=== PATIENT | male | born 1955 | race Caucasian/White ===

== ENCOUNTER → 2018-11-19 06:32 | Day surgery (SDC) | payer BC, OTHER ==
[~2018-11-19 06:32] MED LIST: Acetaminophen TAB* 325 MG ONE; Acetaminophen TAB* 325 MG PO ONE; Buffered Lidocaine 1% SYRIN* 1 ML/SYRINGE INTRADERM ONE; Bupivacaine 0.25% SDV PF* 10 ML VIAL INJ ONE; Dexamethasone IV* 4 MG/ML 1 ML (4 MG) ONE; DiMENhydriNATE IV* 50 MG/ML VIAL IV PUSH PRN; DiMENhydriNATE IV* 50 MG/ML VIAL ONE; Famotidine IV* 10 MG/ML 2 ML (20 mg) ONE; Gabapentin CAP(*) 300 MG ONE; Gabapentin CAP(*) 300 MG PO ONE; HYDROcodone/ACETAMIN 5-325 MG* 1 TAB ONE; HYDROcodone/ACETAMIN 5-325 MG* 1 TAB PO PRN; Ketorolac INJ* 30 MG/ML 1 ML VIAL ONE; Labetalol IV* 5 MG/ML 20 ML VIAL ONE; Lactated Ringers 1000 ML Bag* 1,000 ML IV SCH; Lidocaine 2% PF * 5 ML VIAL ONE; Midazolam* 1 MG/ML 2 ML VIAL (2 MG) ONE; Naloxone* 0.4 MG/ML 1 ML VIAL IV PRN; Ondansetron INJ* 2 MG/ML VIAL IV PRN; Ondansetron INJ* 2 MG/ML VIAL ONE; PROCHLORPERAZINE INJ 5 MG/ML 2 ML VIAL IV PRN; Propofol* 10 MG/ML 20 ML BTL ONE; ceFAZolin 2 GM in NS PREMIX(*) 2 GM/100 ML BAG IVPB ONE; diPHENhydraMINE IV* 50 MG/ML 1 ml VIAL (BENADRYL) IV PRN; fentaNYL* 50 MCG/ML 2 ML VIAL (100 MCG VIAL) ONE
[2018-11-19] MEDS: fentaNYL* 50 MCG/ML 2 ML VIAL (100 MCG VIAL) IV PRN ×4 (11:50→12:35)
[2018-11-19 13:55] VITALS: BP 153/106
--- NOTE | 2018-11-19 14:46 | OP ---
OPERATIVE REPORT: DATE OF OPERATION: 11/19/18 DATE OF : 55 SURGEON: Piter Mccain MD CLIENT DEVELOPMENT MANAGER: GLENDA Fatima An ex assistant/program director was needed for the entirety of the procedure to aid in positioning of the arm and retraction. ANESTHESIOLOGIST: Dr. Short. ANESTHESIA: General. PRE-OP DIAGNOSIS: Right elbow distal biceps tendon rupture. POST-OP DIAGNOSIS: Right elbow distal biceps tendon rupture. OPERATIVE PROCEDURE: Repair of right elbow distal biceps tendon rupture. IMPLANTS: Arthrex distal biceps tendon kit including EndoButton and tenodesis screw. INDICATIONS: Naseem has the distal biceps tendon rupture, it is very painful. We talked about risks and benefits. He wanted to proceed. He understands there is a risk of rerupture, of infection, of fracture, of neurovascular injury , and he wants to proceed. ESTIMATED BLOOD LOSS: 5 mL. COMPLICATIONS: None. FINDINGS: See above and below. DESCRIPTION OF PROCEDURE: Naseem was seen in the preoperative holding area. The correct site, side, and procedure were identified. We came back to the operating room where the arm was prepped and draped in the usual fashion and a time-out was performed. I exsanguinated the arm with the Esmarch and the sterile tourniquet was inflated to 250 mmHg. I made a 5 to 8 cm longitudinal incision just adjacent to the medial aspect of the brachioradialis. Dissection was carried down. There was a traversing superficial vein with little branch that was cauterized and retracted out of the way. The cutaneous nerves were preserved. The fascia was opened. The distal biceps tendon was tracked down and was noted to be ruptured. It was actually a very high-grade partial rupture. There were few fibers that were still intact, but there was only very few. These very snipped with the curved Martinez scissors and the tendon was brought up. The lacertus was released to aid immobilization, and I went ahead and used a sterile tongue depressor and a knife to trim back the very degenerative end of the tendon. Once I had a nice fresh end, I used a FiberLoop suture to whipstitch the last 4 cm of the tendon. The EndoButton was then placed. I then placed [employer] retractors and visualized the radial tuberosity. I placed the 0.032 guidewire bicortically. I then had sized the tendon at an 8 mm and so I selected a 9 mm reamer and then reamed unicortically. I then used the button placing device to pass the button through the far cortex. The button was then flipped and mini C- arm fluoroscopy was used to ensure the button was flipped and sitting right down on the bone. I then pulled the tendon down, it docked nicely into the bone tunnel. I used a free needle to sew through the tendon and then tied off with maximal tension with the elbow flexed to about 80 degrees and the tendon fully seated in the tunnel. I then placed 1 limb of the suture through the EndoButton and placed my EndoButton on the radial aspect in standard fashion, providing very secure distal biceps tendon repair. Once the tendon was fully repaired, I took it through a range of motion cycle. It was very nicely docked into the tunnel. There was no wiggle or play in the system whatsoever. I irrigated out the wound copiously. The subcutaneous tissue was reapproximated with 3-0 Vicryl, skin was closed with 4-0 Monocryl and Steri-Strips. 0.25% plain Marcaine was infiltrated all about the operative area. The elbow was kept at 60 degrees of flexion throughout the entirety of the closure. Wound was dressed and a long-arm splint with a lateral buttress with the elbow in 80 degrees of flexion was applied. He was taken to the recovery room in stable condition. Hand pinked up immediately upon tourniquet deflation in the recovery room. The posterior interosseous nerve was functioning nicely. [id number] #: [id number] TERESA
== END | disposition home or self-care (01) ==
LOC: OR 06:32
PROVIDERS: ATTEND Orthopaedic Surgery Hand Surgery
DX: S46.211A Strain of muscle, fascia and tendon of other parts of biceps, right arm, initial encounter (principal); I10 Essential (primary) hypertension; Z87.891 Personal history of nicotine dependence; X50.0XXA Overexertion from strenuous movement or load, initial encounter; Y93.89 Activity, other specified; Y92.9 Unspecified place or not applicable; Y99.0 Civilian activity done for income or pay
CPT/HCPCS: 76000; A9270-GY; C1713; J0690; J1100; J1240; J1885; J2250; J2405; J2704; J3010; J3490